=== PATIENT | male | born 1965 | race Two or more races ===

== ENCOUNTER → 2023-09-01 06:57 | Outpatient (CLI) | payer OTHER ==
[2023-09-01 08:00] LABS: PH,URINE 6.5 (5.0-8.0); URINE APPEARANCE Clear; URINE BILIRRUBIN Negative (NEGATIVE); URINE BLOOD Negative; URINE COLOR Yellow; URINE GLUCOSE Negative (NEGATIVE); URINE LEUKOCYTE Negative; URINE NITRATE Negative; URINE PROTEIN Negative (NEGATIVE)
[2023-09-01 08:03] LABS: HEMATOCRIT 44.4 % (39.0-48.0); HEMOGLOBIN 15.1 g/dL (13-16.00); MEAN CELL VOLUME 90.5 fL (80.0-100.00); MEAN CORPUSCULAR HEMOGLOBIN 30.7 pg (27.00-32.0); MEAN CORPUSCULAR HGB CONC 33.9 g/dl (32.0-36.0); PLATELET COUNT 253 K/uL (150-450); RED BLOOD COUNT 4.91 M/uL (4.00-6.00); RED CELL DISTRIBUTION WIDTH 14.4 % (11.5-14.5)
[2023-09-01 08:04] LABS: URINE EPITHELIAL CELLS 1.6 uL (0.0-38.8); URINE WBC 5.2 uL (0.0-23.2)
[2023-09-01 08:09] LABS: URINE BACTERIA 1.2 uL (0.0-1933); URINE RBC 1.4 uL (0.0-20.8)
[2023-09-01 09:11] LABS: % SATURACION 30.8 % (20-50); ALBUMIN 3.9 gm/dL (3.4-5.0); BILIRUBIN TOTAL 0.64 mg/dL (0.3-1.2); CALCIUM 9.3 mg/dL (8.5-10.1); CREATININE SERUM 0.87 mg/dL (0.70-1.30); FERRITIN 70.8 NG/ML (26-388); GFR 89.51; GLOBULINA 3.2 G/DL (2.4-3.5); POTASSIUM 4.36 mEq/L (3.5-5.1); PROSTATIC SPECIFIC ANTIGEN 1.06 NG/ML (0.010-4.00); T4 FREE 1.04 NG/ML (0.76-1.46); TOTAL PROTEIN 7.1 gm/dL (6.4-8.2); TSH 1.62 uIU/mL (0.358-3.74)
[2023-09-01 12:36] LABS: MANUAL PLATELET COUNT 300
[2023-09-01 12:38] LABS: PLATELET ESTIMATE NORMAL (NORMAL)
[2023-09-01 13:12] LABS: FOLIC ACID 19.06 ng/ml (4.78-20)
[2023-09-02 06:06] LABS: ALPHA FETO PROTEIN 2.9 ng/mL (0.0-8.4)
[2023-09-03 12:09] LABS: PARIETAL CELL ANTIBODIES 1.4 Units (0.0-20.0)
== END | disposition home or self-care (01) ==
LOC: LAB 06:57
PROVIDERS: ATTEND Internal Medicine Hematology & Oncology
DX: D50.8 Other iron deficiency anemias (principal); R79.9 Abnormal finding of blood chemistry, unspecified; I10 Essential (primary) hypertension; R74.02 Elevation of levels of lactic acid dehydrogenase [LDH]; K76.89 Other specified diseases of liver; D51.1 Vitamin B12 deficiency anemia due to selective vitamin B12 malabsorption with proteinuria; D51.0 Vitamin B12 deficiency anemia due to intrinsic factor deficiency; E03.8 Other specified hypothyroidism; E06.3 Autoimmune thyroiditis; R97.0 Elevated carcinoembryonic antigen [CEA]; R97.8 Other abnormal tumor markers; R97.20 Elevated prostate specific antigen [PSA]; R77.2 Abnormality of alphafetoprotein; N39.0 Urinary tract infection, site not specified; D51.3 Other dietary vitamin B12 deficiency anemia; M10.00 Idiopathic gout, unspecified site; E78.2 Mixed hyperlipidemia; R73.01 Impaired fasting glucose

== ENCOUNTER 2023-10-12 08:18 | Outpatient (CLI) | payer OTHER | END 2023-10-12 08:23 | disposition home or self-care (01) | LOC: SONOGRAMA 08:18 | PROVIDERS: ATTEND Pathology Anatomic Pathology & Clinical Pathology | DX: D34 Benign neoplasm of thyroid gland (principal); E04.2 Nontoxic multinodular goiter; E07.89 Other specified disorders of thyroid ==

== ENCOUNTER → 2025-03-31 | Emergency (ER) | payer OTHER ==
[~2025-03-31] VITALS: Ht 180.3 cm; Wt 92.5 kg
[~2025-03-31] MED LIST: CAMBIA50 MG; HYDROCHLOROTHIA25 MG PO; LODOCO0.5 MG PO; METFORMIN HCL500 M3; ZESTRIL2.5 MG
== END | disposition left against medical advice (07) ==
LOC: ER 19:42
DX: Z53.21 Procedure and treatment not carried out due to patient leaving prior to being seen by health care provider (principal)